=== PATIENT | female | born 1985 | race Caucasian/White ===

== ENCOUNTER 2019-02-10 13:12 | Emergency (ER) | payer BC ==
--- NOTE | 2019-02-10 13:33 | EDM.PDOC ---
ED HPI GENERAL MEDICAL PROBLEM - General Chief Complaint: Genitourinary Problem Stated Complaint: UTI Time Seen by Provider: 02/10/19 13:13 Source of Information: Reports: Patient History Limitations: Reports: No Limitations - History of Present Illness INITIAL COMMENTS - FREE TEXT/NARRATIVE: History of present illness: []Patient started having pain with urination yesterday and his progress this morning. She denies any fevers, chills, back pain, nausea or vomiting. He is in the past and it feels the same. Review of systems: As per history of present illness and below otherwise all systems reviewed and negative. Past medical history: As per history of present illness and as reviewed below otherwise noncontributory. Surgical history: As per history of present illness and as reviewed below otherwise noncontributory. Social history: No reported history of drug or alcohol abuse. Family history: As per history of present illness and as reviewed below otherwise noncontributory. Physical exam: General: Well developed, well nourished in NAD HEENT: Atraumatic, normocephalic, pupils reactive, negative for conjunctival pallor or scleral icterus, mucous membranes moist, throat clear, neck supple, nontender, trachea midline. Lungs: Clear to auscultation, breath sounds equal bilaterally, chest nontender. Heart: S1S2, regular, negative for clicks, rubs, or JVD. Abdomen: NABS, Soft, nondistended, nontender. Negative for masses or hepatosplenomegaly. Negative for costovertebral tenderness. Pelvis: Stable nontender. Genitourinary: Deferred. Rectal: Deferred. Extremities: Atraumatic, negative for cords or calf pain. Neurovascular unremarkable. Neuro: Awake, alert, oriented. Cranial nerves II through XII unremarkable. Cerebellum unremarkable. Motor and sensory unremarkable throughout. Exam nonfocal. Skin:warm and dry Diagnostics: UA, urine culture, urine hCG Therapeutics: Pyridium ED Course: Table Impression: UTI Prescriptions: Pyridium and Bactrim Plan: Take meds as directed, follow up with your primary care physician, return to ER if symptoms worsen or change. Definitive disposition and diagnosis as appropriate pending reevaluation and review of above. Pelvic Pain Score (Numeric/FACES): 2 - Related Data Allergies Allergy/AdvReac Type Severity Reaction Status Date / Time NSAIDS (Non-Steroidal Allergy Bleeding Verified 02/10/19 13:26 Anti-Inflamma Home Meds: Home Meds Phenazopyridine HCl [Pyridium] 200 mg PO TID #9 tablet 02/10/19 [Rx] Sulfamethoxazole/Trimethoprim [Bactrim Ds Tablet] 1 each PO BID #20 tablet 02/10 [Rx] ED ROS GENERAL - Review of Systems Review Of Systems: See Below ED EXAM, RENAL/ - Physical Exam Exam: See Below Course - Vital Signs Last Recorded V/S: Last Vital Signs Temp 97.3 F 02/10/19 13:27 Pulse 70 02/10/19 13:27 Resp 16 02/10/19 13:27 BP 125/70 02/10/19 13:27 Pulse Ox 97 02/10/19 13:27 - Orders/Labs/Meds Orders: Active Orders 24 hr Category Date Time Status CULTURE URINE [RM] Routine Lab 02/10/19 13:26 Received Labs: Laboratory Tests 02/10/19 02/10/19 Range/Units 13:26 13:26 Urine Color YELLOW Urine Appearance CLOUDY Urine pH 7.5 (5.0-8.0) Ur Specific [place] 1.020 (1.001-1.035) Urine Protein 100 H (NEGATIVE) mg/dL Urine Glucose (UA) NEGATIVE (NEGATIVE) mg/dL Urine Ketones NEGATIVE (NEGATIVE) mg/dL Urine Occult Blood LARGE H (NEGATIVE) Urine Nitrite POSITIVE H (NEGATIVE) Urine Bilirubin NEGATIVE (NEGATIVE) Urine Urobilinogen 4.0 H (<2.0) EU/dL Ur Leukocyte Esterase SMALL H (NEGATIVE) Urine RBC 10-15 (0-2/HPF) Urine WBC TO NUMEROUS TO COUNT H (0-5/HPF) Ur Epithelial Cells RARE (NONE-FEW) Urine Bacteria 3+ H (NEGATIVE) Urine HCG, Qual NEGATIVE (NEGATIVE) Meds: Medications Discontinued Medications Generic Name Dose Route Start Last Admin Trade Name Freq PRN Reason Stop Dose Admin Phenazopyridine HCl 200 mg 02/10/19 13:42 02/10/19 13:49 Pyridium PO 02/10/19 13:43 200 mg ONETIME ONE Administration Departure - Departure Time of Disposition: 14:39 Disposition: Home, Self-Care 01 Condition: Good Clinical Impression: UTI (urinary tract infection) - Discharge Information *PRESCRIPTION DRUG MONITORING PROGRAM REVIEWED*: No *COPY OF PRESCRIPTION DRUG MONITORING REPORT IN PATIENT ADDISON: No Prescriptions: Phenazopyridine HCl [Pyridium] 200 mg PO TID #9 tablet Sulfamethoxazole/Trimethoprim [Bactrim Ds Tablet] 1 each PO BID #20 tablet Referrals: PCP,None [Primary Care Provider] - Forms: ED Department Discharge Additional Instructions: The following information is given to patients seen in the emergency department who are being discharged to home. This information is to outline your options for follow-up care. We provide all patients seen in our emergency department with a follow-up referral. The need for follow-up, as well as the timing and circumstances, are variable depending upon the specifics of your emergency department visit. If you don't have a primary care physician on staff, we will provide you with a referral. We always advise you to contact your personal physician following an emergency department visit to inform them of the circumstance of the visit and for follow-up with them and/or the need for any referrals to a consulting specialist. The emergency department will also refer you to a specialist when appropriate. This referral assures that you have the opportunity for follow-up care with a specialist. All of these measure are taken in an effort to provide you with optimal care, which includes your follow-up. Under all circumstances we always encourage you to contact your private physician who remains a resource for coordinating your care. When calling for follow-up care, please make the office aware that this follow-up is from your recent emergency room visit. If for any reason you are refused follow-up, please contact the [facility] Emergency Department at and asked to speak to the emergency department charge nurse. Take meds as directed, follow up with your primary care physician, return to ER if symptoms worsen or change. [facility] [address] [place] [id number] - My Orders Last 24 Hours: My Active Orders 02/10/19 13:26 CULTURE URINE [RM] Routine - Assessment/Plan Last 24 Hours: My Active Orders 02/10/19 13:26 CULTURE URINE [RM] Routine
[2019-02-10] MEDS ORDERED: Phenazopyridine 200 MG Tab PO ONE (13:42)
== END 2019-02-10 14:50 | disposition home or self-care (01) ==
LOC: MW.ED 13:12
DX: N39.0 Urinary tract infection, site not specified (principal); Z79.899 Other long term (current) drug therapy
CPT/HCPCS: 81001; 81025; 87086; 99283; A9270; 87088; 87186; 99282

== ENCOUNTER 2020-02-05 13:00 | Day surgery (SDC) | payer BC ==
[~2020-02-05 13:00] MED LIST: Bupivacaine 0.25% 10 ML SDV ONE; Lactated Ringers 1,000 ML IV SCH; Lidocaine 2% 5 ML SDV ONE; Midazolam 1 MG/ML 2 ML SDV ONE; Propofol 200 MG/20 ML SDV ONE; Rocuronium Bromide 50 MG/5 ML Syringe ONE; fentaNYL 100 MCG/2 ML SDV ONE
--- NOTE | 2020-02-05 13:12 | PCM.PREANE ---
Preanesthetic Assessment - Anesthesia/Transfusion/Family Hx Anesthesia History: Prior Anesthesia Without Reaction Family History of Anesthesia Reaction: No Transfusion History: No Prior Transfusion(s) - Review of Systems General: No Symptoms Pulmonary: No Symptoms Cardiovascular: No Symptoms Gastrointestinal: No Symptoms Neurological: No Symptoms Other: Reports: None - Physical Assessment NPO Status Date: 02/04/20 (only cl delores) Vital Signs: Last Vital Signs Temp 97.3 F 02/05/20 12:41 Pulse 66 02/05/20 12:41 Resp 16 02/05/20 12:41 BP 119/67 02/05/20 12:41 Pulse Ox 96 02/05/20 12:41 Height: 5 ft 7 in Weight: 90.265 kg ASA Class: 2 Mental Status: Alert & Oriented x3 Airway Class: Mallampati = 2 Dentition: Reports: Normal Dentition ROM/Head Extension: Full Lungs: Clear to Auscultation, Normal Respiratory Effort Cardiovascular: Regular Rate, Regular Rhythm - Lab Values: Laboratory Last Values WBC 5.99 K/uL (4.0-11.0) 02/05/20 12:26 RBC 4.12 M/uL (4.30-5.90) L 02/05/20 12:26 Hgb 13.5 g/dL (12.0-16.0) 02/05/20 12:26 Hct 39.4 % (36.0-46.0) 02/05/20 12:26 MCV 95.6 fL (80.0-98.0) 02/05/20 12:26 MCH 32.8 pg (27.0-32.0) H 02/05/20 12:26 MCHC 34.3 g/dL (31.0-37.0) 02/05/20 12:26 RDW Std Deviation 42.5 fl (28.0-62.0) 02/05/20 12:26 RDW Coeff of [place] 12 % (11.0-15.0) 02/05/20 12:26 Plt Count 181 K/uL (150-400) 02/05/20 12:26 MPV 9.70 fL (7.40-12.00) 02/05/20 12:26 Nucleated RBC % 0.0 /100WBC 02/05/20 12:26 Nucleated RBCs # 0 K/uL 02/05/20 12:26 HCG, Qual POSITIVE (NEG) H 02/05/20 12:26 SARS Virus RNA (PCR) NEGATIVE (NEGATIVE) 02/05/20 12:00 - Allergies Allergies/Adverse Reactions: Allergies Allergy/AdvReac Type Severity Reaction Status Date / Time NSAIDS (Non-Steroidal Allergy "due to Verified 02/05/20 12:48 Anti-Inflamma gastric sleeve" - Blood Blood Available: No - Anesthesia Plan Pre-Op Medication Ordered: None - Acknowledgements Anesthesia Type Planned: General Anesthesia Pt an Appropriate Candidate for the Planned Anesthesia: Yes Alternatives and Risks of Anesthesia Discussed w Pt/Guardian: Yes Pt/Guardian Understands and Agrees with Anesthesia Plan: Yes Additional Comments: asthma inactive for several months, but single use of inhaler yest, no clonazepan x 1 week PreAnesthesia Questionnaire HEENT History: Reports: None Cardiovascular History: Reports: None Respiratory History: Reports: Asthma Gastrointestinal History: Reports: None Genitourinary History: Reports: None Neurological History: Reports: None Psychiatric History: Reports: Anxiety Endocrine/Metabolic History: Reports: None Hematologic History: Reports: None Immunologic History: Reports: None Oncologic (Cancer) History: Reports: None Dermatologic History: Reports: None - Infectious Disease History Infectious Disease History: Reports: None - Past Surgical History Head Surgeries/Procedures: Reports: None HEENT Surgical History: Reports: Adenoidectomy, Tonsillectomy Cardiovascular Surgical History: Reports: None Respiratory Surgical History: Reports: None GI Surgical History: Reports: Bariatric Procedure, Other (See Below) Other GI Surgeries/Procedures: gastric sleeve Endocrine Surgical History: Reports: None Neurological Surgical History: Reports: None Musculoskeletal Surgical History: Reports: Arthroscopic Knee, Other (See Below) Other Musculoskeletal Surgeries/Procedures:: rt ankle ligament repair, Oncologic Surgical History: Reports: None Dermatological Surgical History: Reports: None - SUBSTANCE USE Smoking Status *Q: Former Smoker Tobacco Use Within Last Twelve Months: No - HOME MEDS Home Medications: Home Meds Acetaminophen/Diphenhydramine [Tylenol Pm Ex-Strength Caplet] 1 each PO DAILY PRN 02/05/20 [History] Albuterol Sulfate [Albuterol Sulfate Hfa] 1 - 2 puff INH ASDIRECTED PRN 02/05/20 [History] ClonazePAM [KlonoPIN] 0.5 tab PO ASDIRECTED PRN 02/05/20 [History] Cyclobenzaprine [Flexeril] 10 mg PO DAILY PRN 02/05/20 [History] - CURRENT (IN HOUSE) MEDS Current Meds: Current Medications Lactated Ringer's (Ringers, Lactated) 1,000 mls @ 125 mls/hr IV ASDIRECTED [facility] Last Admin: 02/05/20 12:48 Dose: 125 mls/hr Documented by: Discontinued Medications Bupivacaine HCl (Sensorcaine-Mpf 0.25%) Confirm Administered Dose 10 ml .ROUTE .STK-MED ONE Stop: 02/05/20 12:38 Fentanyl (Sublimaze) Confirm Administered Dose 100 mcg .ROUTE .STK-MED ONE Stop: 02/05/20 12:13 Lidocaine (Xylocaine-Mpf 2%) Confirm Administered Dose 5 ml .ROUTE .STK-MED ONE Stop: 02/05/20 12:13 Midazolam HCl (Versed 1 Mg/Ml) Confirm Administered Dose 2 mg .ROUTE .STK-MED ONE Stop: 02/05/20 12:13 Propofol (Diprivan 20 Ml) Confirm Administered Dose 200 mg .ROUTE .STK-MED ONE Stop: 02/05/20 12:13 Rocuronium [place] (Rocuronium [place]) Confirm Administered Dose 50 mg .ROUTE .STK-MED ONE Stop: 02/05/20 12:13
[2020-02-05] MEDS ORDERED: Ondansetron 4 MG/2 ML SDV ONE (13:37)
[2020-02-05] MEDS ORDERED: Dexamethasone 4 MG/ML 5 ML MDV ONE (13:37)
[2020-02-05] MEDS ORDERED: Bupivacaine 0.25% 10 ML SDV ONE (13:41)
[2020-02-05] MEDS ORDERED: Glycopyrrolate 0.2 MG/ML SDV ONE ×2 (13:51→14:09)
[2020-02-05] MEDS ORDERED: ePHEDrine 50 MG/ML SDV ONE (13:51)
[2020-02-05] MEDS ORDERED: fentaNYL 100 MCG/2 ML SDV ONE (13:57)
[2020-02-05] MEDS ORDERED: Rocuronium Bromide 50 MG/5 ML Syringe ONE (13:59)
[2020-02-05] MEDS ORDERED: Ketorolac 30 MG/ML SDV ONE (14:25)
[2020-02-05] MEDS ORDERED: 50% Dextrose in Water 50 ML Syringe IVPUSH PRN (14:37)
[2020-02-05] MEDS ORDERED: Naloxone 0.4 MG/ML Syringe IVPUSH PRN (14:37)
[2020-02-05] MEDS ORDERED: Albuterol 0.083% 2.5 MG/3 ML Neb Soln NEB PRN (14:37)
[2020-02-05] MEDS ORDERED: Atropine 0.1 MG/ML 10 ML Syringe IVPUSH PRN ×2 (14:37)
[2020-02-05] MEDS ORDERED: EPINEPHrine 1:10,000 1 MG/10 ML Syringe IVPUSH PRN (14:37)
[2020-02-05] MEDS: fentaNYL 100 MCG/2 ML SDV IVPUSH PRN ×3 (14:40→15:02)
--- NOTE | 2020-02-05 15:31 | PCM.OPNOTE ---
- General Post-Op/Procedure Note Date of Surgery/Procedure: 02/05/20 Operative Procedure(s): laparoscopic right salpingectomy, excision of vulvar cyst. Findings: 1.5 cm left vulvar cyst. Unruptured midtubal ectopic , normal ovaries, normal left tube. Pre Op Diagnosis: tubal ectopic , vulvar cyst. Post-Op Diagnosis: same Anesthesia Technique: General ET Tube Primary Surgeon: Carolina Graf Secondary Surgeon: Phil Marie Anesthesia Provider: Shawn Howe Keyboard Specialist: Hoda Rose Pathology: vulvar cyst, right fallopian tube, with ectopic Output, Urine Amount: 50 EBL in mLs: 15 Complications: None Known Condition: Good Free Text/Narrative:: Intake & Output 02/05/20 02/05/20 02/05/20 06:59 14:59 22:59 Intake Total 2200 Balance 2200
--- NOTE | 2020-02-05 15:33 | PCM.POSTAN ---
POST ANESTHESIA ASSESSMENT - MENTAL STATUS Mental Status: Alert, Oriented - VITAL SIGNS Vital Signs: Last Vital Signs Temp 36.8 C 02/05/20 14:25 Pulse 66 02/05/20 15:13 Resp 8 L 02/05/20 15:13 BP 110/61 02/05/20 15:13 Pulse Ox 98 02/05/20 15:13 - RESPIRATORY Respiratory Status: Respiratory Rate WNL, Airway Patent, O2 Saturation Stable - CARDIOVASCULAR CV Status: Pulse Rate WNL, Blood Pressure Stable - GASTROINTESTINAL GI Status: No Symptoms - PAIN Pain Score: 3 (reports adequate pain control) - POST OP HYDRATION Hydration Status: Adequate & Stable
--- NOTE | 2020-02-07 10:08 | OR ---
SURGEON: Carolina Graf M.D. DATE OF PROCEDURE: 02/05/2020 PREOPERATIVE DIAGNOSES: Right tubal ectopic , vulvar cyst. POSTOPERATIVE DIAGNOSES: Right tubal ectopic , vulvar cyst. PROCEDURES: Excision of vulvar cyst, laparoscopic right salpingectomy. PRIMARY SURGEON: Carolina Graf MD MANAGER SIGN: Phil Marie MS4 ANESTHESIA: General endotracheal. ESTIMATED BLOOD LOSS: 15 mL. FINDINGS: A 2 cm right vulvar cyst embedded deep within the perineum. This appears to be an inclusion cyst. Uterus was retroverted. Upon laparoscopic evaluation, there was an ectopic distending the right mid salpinx. There was a small amount of blood in the cul-de-sac. The left tube and ovary appeared normal. COMPLICATIONS: None known. DISPOSITION: Stable to Recovery. BRIEF HISTORY: This is a 34-year-old female. She presents with left-sided pain, bleeding, and an abnormally rising HCG. Ultrasound shows a right-sided tubal ectopic measuring 1.6 x 3.5 cm. She was provided with options including methotrexate, salpingectomy, or salpingostomy, and she desires to proceed with a laparoscopic right salpingectomy with risks discussed including bleeding; infection; injury to bowel, bladder, blood vessels, ureters, or other organs; risk of thromboembolic event; risk of anesthesia. Additionally, she has a longstanding left vulvar cyst. It was recommended that this excision be performed in the operating room rather than in the office, and she desires to have this performed at the time of this surgery. Additional risk of vulvar pain was discussed. Otherwise, this adds no additional risks to the procedure. Understanding all of these issues, she does desire to proceed. She also agrees and concurs that a medical student will be assisting me and will perform pelvic exam in the operating room. DESCRIPTION OF PROCEDURE: With the patient in dorsal lithotomy position, under adequate general endotracheal anesthesia, the abdomen was prepped with chlorhexidine. The vagina was prepped with Betadine and draped in the usual fashion for laparoscopic surgery. SCDs were in place. The bladder had been drained with a red Swanson catheter and appropriate time-out was held. The area around the vulvar cyst, which was at the base of the left labia minora, was infiltrated with 1% lidocaine and the skin over the cyst was incised. Metzenbaum scissors were used to dissect around the capsule. The cyst was removed intact. The deep perineal tissue was then reapproximated using a running lock suture of 3-0 Monocryl followed by subcuticular suture of 3-0 Monocryl. This area was hemostatic. Attention was then turned to the cervix. A Hulka tenaculum was placed on the cervix, carefully rotating it from posterior to anterior due to the retroverted uterus. Enamel Dipper's gloves were changed and attention was then turned abdominally, where a 5 mm incision was made inferior to the umbilicus. A Veress needle was inserted. Hanging drop test confirmed the intraperitoneal placement and opening CO2 pressure was 4 mmHg. CO2 was insufflated to develop an adequate pneumoperitoneum of 15 mmHg. The pelvis was inspected after the 5 mm port was placed and findings were as noted above. Two additional ports were placed under direct visualization, 2 cm medial and cephalad from the anterior superior iliac spine on the right and the left. This being completed, the tip of the tube was grasped on the right and the ligament between the tube and the ovary was incised with the LigaSure. The mesosalpinx was incised with LigaSure and the tube was transected proximally in order to not rupture the ectopic while removal was performed. I needed to place a larger port through the umbilical incision. A 10 mm port was placed. The EndoCatch bag was utilized. The tube was removed and sent to Pathology. The pelvis was then inspected under high and low pressure. There were no areas of bleeding. The pelvis was irrigated and cleaned and the abdomen was then desufflated after all the instruments had been removed and the port sites were removed. The skin was closed with subcuticular suture of 3-0 Monocryl and the Hulka tenaculum was removed. The cervix was inspected and was hemostatic. Final sponge, needle, and instrument counts were correct. There were no known complications. The patient was transferred to Recovery in good condition. SLY / DICK /[id number]
== END 2020-02-07 16:26 | disposition home or self-care (01) ==
LOC: MW.SDS 13:00
PROVIDERS: ATTEND Obstetrics & Gynecology
DX: O00.101 Right tubal pregnancy without intrauterine pregnancy (principal); N90.7 Vulvar cyst; F41.9 Anxiety disorder, unspecified; J45.909 Unspecified asthma, uncomplicated; Z11.59 Encounter for screening for other viral diseases; Z88.6 Allergy status to analgesic agent; Z79.899 Other long term (current) drug therapy; Z87.891 Personal history of nicotine dependence
CPT/HCPCS: 36415; 57135; 59151; 84702; 84703; 85027; 86850; 86900; 86901; 87635; 88305; J1100; J1885; J2001; J2250; J2405; J2704; J3010; J3490; J7120; U0002